=== PATIENT | male | born 1960 | race Caucasian/White ===

== ENCOUNTER 2021-07-25 15:34 | Inpatient (IN) | payer BC, OTHER ==
[~2021-07-25] VITALS: Ht 188 cm; Wt 102.4 kg
[2021-07-25 16:50] LABS: ABSOLUTE NEUTROPHILS 9.5 thou/uL (1.4-8.2); BASOPHILS 0.5 % (0.0-2.0); EOSINOPHILS 2.5 % (0.0-3.0); HEMATOCRIT 36.3 % (42.0-52.0); LYMPHOCYTES 9.2 % (24.0-44.0); MCH 27.6 pg (26.0-34.0); MCHC 33.1 g/dL (28.0-37.0); MCV 83.2 fL (80.0-100.0); PLATELET COUNT 238 thou/uL (150-400); POLYS 79.8 % (36.0-66.0); RBC 4.37 mil/uL (4.50-6.00); RDW 13.4 % (10.5-14.5); WBC 11.9 thou/uL (4.0-11.0)
[2021-07-25 16:54] LABS: CALCIUM 8.5 mg/dL (8.5-10.1); CREATININE 1.5 mg/dL (0.7-1.3); POTASSIUM 4.1 mmol/L (3.5-5.1)
[2021-07-25] MEDS ORDERED: AMOX TR-K CLV1 EAC4 PO ×2 (16:54)
[2021-07-25] MEDS ORDERED: HYDROCHLOROTHIA25 M1 PO ×2 (16:55)
[2021-07-25] MEDS ORDERED: GLUCOPHAGE XR750 MG PO ×2 (16:55)
[2021-07-25] MEDS ORDERED: HYDROCODON-ACE1 EAC8 PO ×2 (16:55)
[2021-07-25] MEDS ORDERED: MIRTAZAPINE15 M2 PO ×2 (16:56)
[2021-07-25] MEDS ORDERED: NEURONTIN 300M300 M2 PO ×2 (16:56)
[2021-07-25] MEDS ORDERED: FLEXERIL PO ×2 (16:57)
[2021-07-25] MEDS ORDERED: NOVOLIN N100 UNIT/1 SUBQ ×2 (16:57)
[2021-07-25] MEDS ORDERED: NOVOLIN R100 UNIT/1 SUBQ ×2 (16:57)
[2021-07-25] MEDS ORDERED: MELOXICAM15 MG PO ×2 (16:58)
[2021-07-26 05:02] LABS: HEMATOCRIT 33.5 % (42.0-52.0); HEMOGLOBIN 11.1 gm/dL (14.0-18.0); MCH 27.8 pg (26.0-34.0); MCHC 33.1 g/dL (28.0-37.0); MCV 84.2 fL (80.0-100.0); RBC 3.99 mil/uL (4.50-6.00); RDW 13.5 % (10.5-14.5); WBC 8.2 thou/uL (4.0-11.0)
[2021-07-26 05:15] LABS: CREATININE 1.6 mg/dL (0.7-1.3); POTASSIUM 3.7 mmol/L (3.5-5.1)
[2021-07-26 06:50] VITALS: BP 118/68
[2021-07-26 07:11] VITALS: BP 124/67
--- NOTE | 2021-07-26 15:09 | HC ---
[facility] [place] [address] CONSULTATION Name: BERNARDINO BUITRAGO Room #: 456-P ADM IN M.R.#: [id number] Admission: 07/25/21 Attend Phys: Amisha Bustamante MD Discharge: Date of : 64 Report #: [id number] THIS REPORT FOR: cc: Jesús Guy Andrea RNP Barry, Joseph W. MD ~ DATE OF SERVICE: 07/26/2021 INFECTIOUS DISEASE CONSULTATION ATTENDING PHYSICIAN: Dr. Bustamante. REASON FOR EVALUATION: Deep seated infection involving the left foot. HISTORY OF PRESENT ILLNESS: Chart reviewed. The patient examined. This is a 60-year-old gentleman with diabetes mellitus complicated by peripheral neuropathy, previous left transmetatarsal amputation due to repeated ulcerations as well as osteomyelitis, has a chronic wound on the dorsal aspect, has been fairly stable, had been undergoing wound care treatment. Over the course of last 3-4 days, had noticed a bullous lesion develop medially, subsequently denuded and there is a blackened eschar. There is odor and clearly there is expressible material with unhealthy tissue. He states he may have had low-grade temperature elevation. Denies any systemic illness in terms of anorexia. No pulmonary or gastrointestinal related complaints other than some mild nausea previously. Did undergo evaluation. Initial foot x-ray suggest larger cavity about 3 cm involving the plantar soft tissue laterally. Some tissue emphysema in the calcaneal region as well. No foreign body noted. Sed rate was 80. Lactic acid 1.8. Coronavirus testing was negative. Empirically, he was started on combination therapy with Zosyn and vancomycin. ALLERGIES: SULFA. CURRENT MEDICATIONS: Include enoxaparin, cyclobenzaprine, vancomycin, Zosyn, hydrocodone as needed, mirtazapine. PAST MEDICAL HISTORY: Diabetes mellitus type 2, complicated by peripheral neuropathy, previous left transmetatarsal amputation, chronic ulcerations, history of hypertension, insomnia, depression. SOCIAL HISTORY: Nonsmoker. No illicit drug use. Fairly regular ethanol. FAMILY HISTORY: Noncontributory. REVIEW OF SYSTEMS: Otherwise, unremarkable. PHYSICAL EXAMINATION: [facility] [address] [place] [address] CONSULTATION Name: BERNARDINO BUITRAGO Room #: 456-P [facility] IN [facility]#: [id number] Admission: 07/25/21 Attend Phys: Amisha Bustamante MD Discharge: Date of : 64 Report #: [id number] GENERAL: He is alert, cooperative, appears somewhat chronically ill. He is lucid, mild to moderate distress. VITAL SIGNS: Afebrile, pulse 94, respirations 15, blood pressure 124/67. SKIN: Warm, dry, no rashes. HEENT: Normocephalic. Extraocular muscles intact. NECK: Supple. LUNGS: Clear to auscultation bilaterally. HEART: Regular rate. I do not appreciate a murmur. ABDOMEN: Mildly distended, somewhat firm, nontender. EXTREMITIES: Left lower extremity distally has a plantar ulcer, some moderate degree of inflammation. More medially, there is a blackened eschar that is quite soft and compressible material. There is odor. GENITOURINARY AND RECTAL: Deferred. LABORATORY DATA: Electrolytes: Sodium 137, potassium 3.7, chloride 103, bicarbonate 26, anion gap of 8, BUN and creatinine 34 and 1.6. Estimated GFR 45. CBC: White count of 8.2, H and H 11.1 and 33.5, platelets of 189. Coronavirus testing was negative. Lactic acid 1.8. ASSESSMENT AND PLAN: Left foot likely deep infection with presumed polymicrobial etiology. Agree with broad-spectrum antimicrobial therapy including coverage for anaerobes. Will need some sort of surgical debridement I believe. At this point, did not suggest bony involvement. Await Podiatry evaluation. Monitor expectantly. We will initiate incentive spirometry. <ELECTRONICALLY SIGNED> By: Mulugeta Thomson MD 07/26/21 1509 [id number] Mulugeta Thomson MD /nt
--- NOTE | 2021-07-26 17:55 | NUR ---
PATIENT ARRIVED FROM EMERGENCY DEPARTMENT AT APPROX 0800. PATIENT IS A&OX4 AND CAN VOICE NEEDS. PATIENT WAS ABLE TO ANSWER ADMISSION ASSESSMENT QUESTIONS W NO ISSUES. PICTURES TAKEN ON L FOOT; 2 ULCERS, AND DRESSED. PATIENT HAD DMII AND HAS HAD STABLE BLOOD SUGARS THROUGHOUT SHIFT. PROVIDERS DR. MEI, ABHINAV, SUZIE & ALISTAIR ROUNDED ON PATIENT. NEW ORDERS ACKKNOWLEDGED & IMPLEMENTED. PATIENT IS A SBA TO BATHROOM WITH SOME GAIT ISSUES DUE TO L FOOT WOUND BUT DENIES PAIN. FLUIDS & ABX INFUSING W NO ISSUES ON L AC. PATIENT VOICES NO FURTHER NEEDS OR COMPLAINTS. MRI ORDERED; PATIENT TO COMPLETE FORM POST DINNER. WILL CONTINUE TO MONITOR PATIENT AND FOLLOW PLAN OF CARE
[2021-07-26 20:20] VITALS: BP 129/57
--- NOTE | 2021-07-27 04:20 | NUR ---
Pt. rested quietly at intervals during the night when checked on during frequent rounds. He offers no c/o pain. He did c/o some nausea, but refused anti-nausea meds when offered. Pt. refused dressing changes because he said it was done so often yesterday with everyoe looking at it.
[2021-07-27 07:52] VITALS: BP 115/59
--- NOTE | 2021-07-27 12:33 | HC ---
[facility] [place] [address] CONSULTATION Name: BERNARDINO BUITRAGO Room #: 456-P ADM IN M.R.#: [id number] Admission: 07/25/21 Attend Phys: Amisha Bustamante MD Discharge: Date of : 64 Report #: [id number] THIS REPORT FOR: cc: Jesús Guy Andrea RNP Jetmore, Allen B. MD ~ DATE OF SERVICE: 07/26/2021 WOUND CARE CONSULTATION NOTE REASON FOR CONSULTATION: Worsened diabetic ulcers of left foot. HISTORY OF PRESENT ILLNESS: The patient is a 60-year-old gentleman with a history of previous transmetatarsal amputation, left foot, for diabetic complications. He has diabetes mellitus type 2 with peripheral neuropathy. He had a previous history of osteomyelitis of left foot requiring transmetatarsal amputation. The patient has recently been managed for ulcers of the left foot, on the plantar foot and medial aspect of the foot. These have now become worse with more drainage, foul odor, black discoloration, redness, swelling, increased drainage. He had a fever about 3 days ago. He was placed on Augmentin without improvement. The patient was admitted to the Emergency Room. Plain x-ray showed no bony changes. The patient is currently on IV antibiotics, vancomycin and Zosyn. He has been seen in consultation by Dr. Jaquez for Podiatry with consideration of salvage of the foot versus possible need for below-knee amputation. Arterial ultrasound Doppler of the lower extremity has been ordered as well as an MRI of the foot. PAST MEDICAL HISTORY: 1. Diabetes mellitus type 2. 2. Diabetic peripheral neuropathy. ALLERGIES: SULFA. LABORATORY DATA: White blood count 11.9. X-RAYS: X-ray of the left foot shows air in the plantar soft tissues of the foot. No bony destruction. PHYSICAL EXAMINATION: GENERAL: Shows a healthy, well-appearing man, age 60. HEENT: Mucous membranes are moist. NECK: Supple. The patient does not appear septic. VITAL SIGNS: Stable. LUNGS: Respirations unlabored. ABDOMEN: Soft. EXTREMITIES: Shows left foot with previous transmetatarsal amputation with [address] [address] CONSULTATION Name: BERNARDINO BUITRAGO Room #: 456-P [facility] IN [facility].#: [id number] Admission: 07/25/21 Attend Phys: Amisha Bustamante MD Discharge: Date of : 64 Report #: [id number] healed stump. The patient has an ulcer on the medial plantar aspect of the foot measuring approximately 2.5 x 2 cm, 50% granulated with some exudate. He has a worsened ulcer on the medial aspect of the foot near the ankle, which is approximately 3 x 3 cm, has a foul odor and black gangrenous necrosis visible on the surface. The patient has some peroneal nerve functional loss. IMPRESSION: 1. Diabetes mellitus type 2 with ulcer of left foot with gangrenous changes. Cellulitis of the left foot. 2. Diabetic neuropathy. 3. History of osteomyelitis of the left foot. PLAN: IV antibiotics, vancomycin and Zosyn. Further evaluation by MRI of the foot to stage the extent of infection. Arterial ultrasound of both lower extremities to assess arterial supply for healing of any potential amputation such as below-knee amputation. Local dressing with quarter-strength Dakin's gauze [address] Jaquez will evaluate the MRI. Dr. Dailey was involved in the case. May be necessary to consult Orthopedic Surgery for consideration of below-knee amputation if Dr. Jaquez feels that foot salvage cannot be done. Wound care will follow. <ELECTRONICALLY SIGNED> By: Vikas Figueroa MD 07/27/21 1233 1430 [id number] Vikas Figueroa MD /nt
[2021-07-27 16:31] VITALS: BP 142/67
--- NOTE | 2021-07-27 19:57 | NUR ---
Assumed pt care this am, vs stable. Wound care and dressing change done. POC followed with no signs opr verbalizations of distress noted. For MRI tomorrow, form sent.l Endorsedtot he night nurse.
[2021-07-27 21:04] VITALS: BP 145/76
--- NOTE | 2021-07-28 03:34 | NUR ---
PT A & O X4, SLEPT THROUGH THE NIGHT TX COMPLETED WOUND SWABBED FOR CULTURE, PT TOLARETED TREATMENT WELL, PAIN MEDICATION DMINISTERED. ICE ON THE BEDSIDE TABLE, CALL LIGHT WITHIN REACH, X1 STANDBY ASSIST TO THE BATHROOM, NO ADVERSE REACTION NOTED FROM THE CURRENT TREATMENT. CONTINUES TO BE ON CARB DIET. EDUCTION PROVIDED ON SAFETY, AND CURRENT TREATMENT PLAN. MUSCLE STRENGTH 5/5 IN ALL EXTREMITIES, ACTIVITY TOLARATED, PERRLA, STRONG APICAL PULSE, CONCERNED ABOUT WOUND ON THE RIGHT FOOT REPORTS TOLARABLE PAIN. WILL CONTINUE TO MONITOR PT.
[2021-07-28 04:05] LABS: GLYCOHEMOGLOBIN (HGB A1C) 8.7 % (4.8-5.6)
[2021-07-28 05:15] VITALS: BP 121/60
[2021-07-28 08:49] VITALS: BP 129/72
--- NOTE | 2021-07-28 12:33 | H ---
[facility] [place] [address] HISTORY AND PHYSICAL Name: BERNARDINO BUITRAGO Room #: 456-P ADM IN M.R.#: [id number] Admission: 07/25/21 Attend Phys: Amisha Bustamante MD Discharge: Date of : 64 Report #: [id number] THIS REPORT FOR: cc: Jesús Guy Andrea RNP Rizzi, Raymond M. DPM ~ DATE OF SERVICE: 07/25/2021 INTRODUCTION: This is a 60-year-old white male with a diabetic foot ulcer, left wound, also status post a transmetatarsal amputation, left foot. HISTORY OF PRESENT ILLNESS: This is a 60-year-old white male diabetic with a history of chronic wounds to his left foot. He had a left transmetatarsal amputation over a year ago. It took about 8 months for it to heal mostly, but never quite healed. He has been fighting a wound on the plantar distal medial aspect of the foot for the last year with the wound never healing. He has tried multiple types of wound care with no success. Now, he has a new wound present over the last week on the medial left ankle that is necrotic with a significant odor. The patient is not complaining of any fever or chills. PAST MEDICAL HISTORY: Noted for diabetes, peripheral neuropathy and hypertension. MEDICATIONS: Mirtazapine, hydrochlorothiazide, metformin. He is on gabapentin, meloxicam, Flexeril, NPH. ALLERGIES: SULFA. PREVIOUS SURGERIES: Left foot transmetatarsal amputation. FAMILY HISTORY: Has been reviewed and unremarkable. SOCIAL HISTORY: No history of tobacco use, occasional alcohol use, no recreational drugs. 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 PHYSICAL EXAMINATION: GENERAL: Well-developed, well-nourished white male, in acute distress. HEENT: PERRLA. NECK: Supple. No lymphadenopathy. HEART: Regular rate and rhythm. LUNGS: No respiratory distress. [facility] [address] [place] [address] HISTORY AND PHYSICAL Name: BERNARDINO BUITRAGO Room #: 456-P [facility] IN [facility].#: [id number] Admission: 07/25/21 Attend Phys: Amisha Bustamante MD Discharge: Date of : 64 Report #: [id number] EXTREMITIES: Lower extremities exam shows he has a left transmetatarsal amputation, slightly edematous, slightly red with a varus-type forefoot loading lateral column, but the wound present on the plantar distal medial foot approximately 4 cm in diameter. This wound has a nice well demarcated area with no surrounding redness and minimal callus present and the wound itself has patches of fibrous tissue. There is a more serious wound on the medial ankle approximately 5.5 cm in diameter, necrotic with purulence and some slight fluctuance in the area right over where the posterior tib artery is. It is reddened in this area. IMAGING DATA: X-rays were taken and unremarkable. Apparently, MRI was take, but finally I think it was not ordered. I did not feel a dorsalis pedis or posterior tibial artery. LABORATORY DATA: His white blood cell count on admit is 11.9. ESR is 80, blood sugar is under 200. ASSESSMENT AND PLAN: Diabetic foot ulcer x 2, left foot, one with a necrotic patch and a clear infection, most likely tendon involved and possibly ostium. Plan is to get a vascular evaluation by Dr. Dailey and also get an MRI. I discussed with the patient the possibility of a BKA or possibility of just debridement, probably will take place until Wednesday or Wednesday because we are awaiting for further information from Dr. Dailey and the MRI. Please call if you have any questions or concerns. This will be a very difficult foot to heal and if it does heal, he also will need to take a job where he is mostly sitting for this to stay healed. <ELECTRONICALLY SIGNED> By: Raudel Jaquez DPM 07/28/21 1233 1155 [id number] Raudel Jaquez DPM /nt
--- NOTE | 2021-07-28 19:27 | NUR ---
Assumed pt care this am, vs stable sent for MRI this am. Wound care dressing done several times today. Diet and medications are tolerated well. POC followed with no signs or verbalizations of distress noted. Awating for IR MD input. Endorse to the night nurse .
[2021-07-28 19:59] VITALS: BP 143/81
--- NOTE | 2021-07-29 03:34 | NUR ---
ASSUMED CARE OF PT AT SHIFT CHANGE. PT IS AOX4 AND LETS NEEDS BE KNOWN. ASSESSMENT CHARTED. ABX TREATMENT CONTINUED. DRESSING CHANGED PER ORDER. PT REPORTED LOME LE PAIN; PRNS PAIN MEDS GIVEN. PT WAS ABLE TO GET COMFORTABLE AND SLEEP PART OF THE SHIFT. VSS AND NO S/S OF ACUTE DISTRESS. WILL CONTINUE TO MONITOR FOR CHANGES.
[2021-07-29 05:28] VITALS: BP 130/77
[2021-07-29 08:10] VITALS: BP 133/70
[2021-07-29 11:25] LABS: CALCIUM 8.3 mg/dL (8.5-10.1); POTASSIUM 4.4 mmol/L (3.5-5.1)
[2021-07-29 16:35] VITALS: BP 144/76
--- NOTE | 2021-07-29 19:18 | NUR ---
Assumed pt care this am, vs stable. Wound care and dressing change done by wound care team. Non weight bearing on affected foot. No pain d/t neuropathy. To be NPO tomorrow at [address] Jaquez for procedure late in the PM, pt aware. POC followed with no signs or verbalizations of distress noted. Endorsed to the night nurse.
[2021-07-29 20:46] VITALS: BP 148/74
--- NOTE | 2021-07-30 04:58 | NUR ---
RECEIVED CARE OF THIS PATIENT AT 1900. PATIENT ALERT AND ORIENTED. UP AD [place]. DRESSING ON L FOOT D/I. WILL BE NPO AT 0800 FOR I/D OF WOUNDS ON L FOOT. C/O MILD PAIN, MED GIVEN. SLEPT MOST OF NIGHT.
--- NOTE | 2021-07-30 09:34 | NUR ---
PT ADMITTED RELATED TO SEPSIS; L FOOT WOUND. CM REVIEWED CHART AND SPOKE WITH CARE TEAM. CM MET WITH PT AT BEDSIDE YESTERDAY. CM ROLE INTRODUCED. PT APPEARED TO BE A&OX4. CM ROLE INTRODUCED. PT INDICATED HE LIVES IN A HOUSE WITH HIS SISTER AND HER SPOUSE WITH 3 STEPS TO ENTER AND 15 STEPS TO HIS LIVING AREA. 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 PT INDICATED NO DME DIGITAL PUBLISHING SPECIALIST. 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 MCCORMACK'S OFFICE. PT ON IV VANC REBEKAD GRANT. PT TO HAVE DEBRIDEMENET OF ANBLE AND FOOT TODAY. CM FOLLOWING REGARDING DC PLANNING.
--- NOTE | 2021-07-30 16:50 | NUR ---
Assumedpt care this am vs stable. NPO after breakfast. Wound care not done, pt wanted wound care to do the change in turn wound care mentioned he will go to surgery. POC followed, pain is managed with medications.
[2021-07-30 19:44] VITALS: BP 171/85
[2021-07-30 21:41] VITALS: BP 163/87
[2021-07-31 00:09] VITALS: BP 137/74
--- NOTE | 2021-07-31 03:30 | NUR ---
ASSUMED PT CARE THIS EVENING THIS.PT IS ALERT AND ORIENTED X4. DRSG CHANGE COOMPLETED; PAIN MEDS GIVEN PRIOR TO CHANGE. VS WITHIN NORMAL RANGE AND MEDS GIEN PER EMAR ORDERS. PT INFORMED ABOUT NPO ORDERS STARTING AT 6AM; PT VERBALIZED UNDERSTANDING. PT DID NOT VERBALIZE ANY CONCERNS. NO VISIBLE SIGN OF DISTRESS NOTED. FALL PRECAUTIONS IN PLACE. WILL CONTINUE TO MONITOR.
[2021-07-31 05:03] VITALS: BP 147/70
--- NOTE | 2021-07-31 15:19 | NUR ---
TODAY THIS PT HAS BEEN NSR ON THE MONITOR WITH NO STATED PAIN AND STABLE VS. HE HAS BEEN NPO SINCE MIDNIGHT AND HE WENT DOWN FOR SURGERY ON HIS FOOT. HE WAS TOLERATING HIS FLUIDS WELL AND HAS BEEN USING THE URINAL AT BEDSIDE WITH NO ISSUES.
--- NOTE | 2021-07-31 15:23 | NUR ---
PT WENT FOR DEBRIDEMENT OF FOOT AND ANKLE THIS AFTERNOON. ID INDICATING THAT PT MAY DC HOME ON CEFTRIAXONE Q24 PENDING CULTURES. CM MET WITH PT AND DISCUSSED HOME INFUSION VS. OP INFUSION. HE WAS RECEPTIVE TO CM SENDING INFO TO [employer] TO [employer] OUT COVERAGE FOR HOME INFUSION. THEY INDICATED ONCE OP $5000 IS MET COVERED AT 100% OTHERWISE $37.72 PER DAY UNTIL MET. CM FOLLOWING REGARDING DC PLANNING.
[2021-07-31 16:03] VITALS: BP 138/85
[2021-07-31 21:11] VITALS: BP 128/73
[2021-08-01 00:10] VITALS: BP 132/65
[2021-08-01 04:08] VITALS: BP 117/62
[2021-08-01 05:19] LABS: HEMATOCRIT 32.5 % (42.0-52.0); HEMOGLOBIN 10.7 gm/dL (14.0-18.0)
[2021-08-01 06:15] LABS: ABSOLUTE NEUTROPHILS 10.8 thou/uL (1.4-8.2); BASOPHILS 0.1 % (0.0-2.0); HEMATOCRIT 32.3 % (42.0-52.0); HEMOGLOBIN 10.9 gm/dL (14.0-18.0); LYMPHOCYTES 6.8 % (24.0-44.0); MCH 27.9 pg (26.0-34.0); MCHC 33.6 g/dL (28.0-37.0); MONOCYTES 1.8 % (1.0-8.0); PLATELET COUNT 234 thou/uL (150-400); POLYS 91.3 % (36.0-66.0); RBC 3.89 mil/uL (4.50-6.00); RDW 13.4 % (10.5-14.5); WBC 11.8 thou/uL (4.0-11.0)
--- NOTE | 2021-08-01 06:27 | NUR ---
top emily wrap removed with minimum bleeding noted per order. inside emily wrap is c/d/i. patient uses a urinal at bed side. patient is up at stephanie. patient in bed asleep at this time breathing regular and unlaboured.
[2021-08-01 06:30] LABS: CALCIUM 8.2 mg/dL (8.5-10.1); POTASSIUM 4.9 mmol/L (3.5-5.1); TOTAL BILIRUBIN 0.3 mg/dL (0.2-1.0); TOTAL PROTEIN 7.1 g/dL (6.4-8.2)
[2021-08-01 08:50] VITALS: BP 145/85
--- NOTE | 2021-08-01 10:26 | NUR ---
A RIGHT #4F SINGLE LUMEN POWER PICC WAS PLACED AFTER A BEDSIDE TIMEOUT WAS COMPLETED PER HOSPITAL POLICY. THE RIGHT BRACHIAL WAS WIDLEY PATENT. AFTER RISKS AND BENIFITS WERE DISCUSSED WELL PICC LINE PROCEDURE THE PATIENT AGREED TO PLACEMENT. CONSENT NOTED. THE 45CM WAS ADVANCED TO 2CM EXTERNAL AND CONFIRMED WITH A PEAKED P WAVE AT 2CM EXTERNAL. THE LINE WAS SECURED AND RELEASED FOR USE
--- NOTE | 2021-08-01 12:21 | NUR ---
CM FOLLOWED UP WITH PT THIS AM AND HE INDICATED DESIRE FOR HOME INFUSION UPON DC AND HH. CM FAXED UPDATED CLINICAL TO [facility] AND [facility]. ANTICIPATED DC TOMORROW. PT WILL NEED BEDSIDE TEACH PRIOR TO DC. FINAL ORD[facility] HH: [facility]:
--- NOTE | 2021-08-01 15:03 | NUR ---
TODAY THIS PT HAS HAD SOME STATED PAIN IN WHICH HE HAS RECIEVED MEDICATIONS FOR. HE HAS BEEN EATING MAJORITY OF HIS MEALS AND HAS BEEN GETTING UP TO THE BATHROOM WITH NO ISSUES. HE HAS OTHERWISE BEEN AWAITING FOR THE NEXT PLAN.
--- NOTE | 2021-08-01 15:09 | NUR ---
THIS PT HAS HAD HIS FOOT DRESSINGS CHANGED BY THE PHYSICIAN AND IS NOT TO BE CHANGED AGAIN UNLESS THE DRAINAGE HAS WENT THROUGH THE DRESSINGS, BUT OTHERWISE IT IS TO BE LEFT ALONE UNTIL THE PATIENTS VISIT IN THE OFFICE.
[2021-08-01 15:53] VITALS: BP 134/78
[2021-08-01 19:52] VITALS: BP 158/80
[2021-08-02 00:25] VITALS: BP 126/63
[2021-08-02 04:30] VITALS: BP 110/63
--- NOTE | 2021-08-02 04:54 | NUR ---
patient aox4 makes needs known. pain controlled this shift. patient used the bathroom at around 2100 and walked on the left foot. minimum bleeding noted and reinforcement applied. at around 0300 patient pad was saturated with blood. called rnp new order to order h&h. called surgeon new order to pack with kelex, ag cell, 2 emily wrap. no bleeding noted at this time. patient in bed asleep at this time breathing regular and unlaboured.
[2021-08-02 06:30] LABS: HEMATOCRIT 26.1 % (42.0-52.0)
[2021-08-02 06:39] LABS: HEMOGLOBIN 8.5 gm/dL (14.0-18.0)
[2021-08-02 08:00] VITALS: BP 130/77
--- NOTE | 2021-08-02 11:50 | O ---
[facility] [place] [address] OPERATIVE REPORT Name: BERNARDINO BUITRAGO Room #: 456-P ADM IN M.R.#: [id number] Admission: 07/25/21 Attend Phys: Amisha Bustamante MD Discharge: Date of : 64 Report #: [id number] THIS REPORT FOR: cc: Jesús Guy Andrea RNP Rizzi, Raymond M. DPM ~ DATE OF SERVICE: 08/01/2021 PREOPERATIVE DIAGNOSIS: Left diabetic foot ulcer and ankle wound. POSTOPERATIVE DIAGNOSIS: Left diabetic foot ulcer and ankle wound. PROCEDURE: Left foot and ankle debridement 12 cm x 5-6 cm with tendon excisional debridement, very aggressive. ANESTHESIA: General with a local block consisting of 15 mL of 0.5% Marcaine. TOURNIQUET: None. DESCRIPTION OF PROCEDURE: The patient was transferred to operating room and placed on the operative table in supine position. Anesthesia was administered and the left lower extremity was prepped and draped in the usual sterile manner. Attention was directed to the left foot where a distal plantar medial wound was noted to approximately the size of a silver dollar with a tunnel going back to a more proximal wound on the left medial ankle. When evaluating this tunnel intraoperatively, it was noted that there was swelling along the plantar fascia and some tendon sheath in this area such as the posterior tib. Decided to open this up, so that I can visualize it better, so I used a 15 blade and Arroyo scissors to open it up completely exposing the necrotic parts of the plantar fascia going more proximal and tunneling back to the origin of the plantar fascia and also more to the lateral side as well more proximal. I removed all the questionable friable tissue and necrotic tissue with a rongeur and sent deep tissue for aerobic and fungal. The entire plantar fascia was visualized, being careful not to devascularize the area. I also carried out more medially along the medial ankle wound and carried it proximally approximately another 2-3 cm in incision, cleaning out any questionable and necrotic tissue, which was found in this area. This took about 30 minutes or more, it was complicated by the significant amount [facility] [address] [place] [address] OPERATIVE REPORT Name: BERNARDINO BUITRAGO Room #: 456-P [facility] ..#: [id number] Admission: 07/25/21 Attend Phys: Amisha Bustamante MD Discharge: Date of : 64 Report #: [id number] of infection present in this area, tunneling and lobulated. It looked excellent when I was done, but there is still concern of, still remaining little pieces of deep fascia that may be harboring infection. I washed out thoroughly and dressed with fluffs, Kerlix and Valeriy bandage. The patient tolerated the procedure well and left the operating room with stable vital signs and vascular intact. It should be noted that there was good bleeding going under this wound. <ELECTRONICALLY SIGNED> By: Raudel Jaquez DPM 08/02/21 1150 1127 1211 Raudel Jaquez, JERRY /nt
--- NOTE | 2021-08-02 15:53 | NUR ---
TODAY THIS PT HAS BEEN NSR ON THE MONITOR WITH SOME STATED PAIN IN WHICH HE HASN'T WANTED INTERVENTION FOR SO FAR. DR. LA CAME UP TO VISIT THE PATIENT ABOUT HIS BLEEDING FOOT AND HE ADDRESSED THE WOUND AND TOLD ME NOT TO CHANGE THE DRESSINGS AND HE WILL BE BACK TOMORROW TO ASSESS IT ONCE AGAIN.
[2021-08-02 16:50] VITALS: BP 155/84
[2021-08-02 20:47] VITALS: BP 142/81
[2021-08-03 00:34] VITALS: BP 138/81
[2021-08-03 04:28] VITALS: BP 126/77
--- NOTE | 2021-08-03 05:41 | NUR ---
Assumed pt care at 1900. A/OX4,VSS. Denies pain on assessment. Looking forward to dc today hopefully. Dsg to Left foot C/D/I. Reminded to not bear weight on extremity and compliant. Voiding per urinal at [facility]. NSR on telemetry. Will continue to monitor pt.
[2021-08-03 07:54] VITALS: BP 130/89
[2021-08-03 11:47] LABS: HEMATOCRIT 25.8 % (42.0-52.0); HEMOGLOBIN 8.6 gm/dL (14.0-18.0); MCHC 33.4 g/dL (28.0-37.0); MCV 83.9 fL (80.0-100.0); RBC 3.08 mil/uL (4.50-6.00); RDW 13.7 % (10.5-14.5); WBC 7.5 thou/uL (4.0-11.0)
[2021-08-03 12:00] VITALS: BP 150/90
[2021-08-03] MEDS ORDERED: HUMULIN N100 UNIT/1 SUBQ ×2 (15:14)
[2021-08-03] MEDS ORDERED: CEFTRIAXONE2 G1 IVPB ×2 (15:15)
[2021-08-03] MEDS ORDERED: FLAGYL500 M1 PO ×2 (15:17)
--- NOTE | 2021-08-03 15:27 | NUR ---
TODAY THIS PT HAS BEEN D/C TO HOME WITH THE CARE OF HIS . NO BLEEDING FROM HIS FOOT SITE THIS SHIFT AND HE HAS BEEN USING HIS ONE LEG WALKER WITH NO DIFFICULTY. HE IS OTHERWISE GOING HOME AND EAGER WELL TO BE D/C.
[2021-08-03 15:32] VITALS: BP 150/90
== END 2021-08-03 17:22 | disposition home health service (06) | DRG 854 ==
LOC: ER 15:34 → 4W 19:50 → EROBS 19:50 → 4W 07-26 07:26
PROVIDERS: Internal Medicine; Nurse Practitioner Family; Podiatrist Foot & Ankle Surgery; Specialist; Student in an Organized Health Care Education/Training Program; ADMIT Hospitalist; ATTEND Hospitalist
PROC: 02HV33Z Insertion of Infusion Device into Superior Vena Cava, Percutaneous Approach (ICD-10-PCS; principal; 2021-08-01)
PROC: 0JBR0ZZ Excision of Left Foot Subcutaneous Tissue and Fascia, Open Approach (ICD-10-PCS; 2021-08-01)
DX: A41.9 Sepsis, unspecified organism (principal); E11.52 Type 2 diabetes mellitus with diabetic peripheral angiopathy with gangrene; L03.116 Cellulitis of left lower limb; D62 Acute posthemorrhagic anemia; E11.621 Type 2 diabetes mellitus with foot ulcer; I12.9 Hypertensive chronic kidney disease with stage 1 through stage 4 chronic kidney disease, or unspecified chronic kidney disease; N18.30 Chronic kidney disease, stage 3 unspecified; E11.22 Type 2 diabetes mellitus with diabetic chronic kidney disease; F32.9 Major depressive disorder, single episode, unspecified; R53.81 Other malaise; G47.00 Insomnia, unspecified; J45.909 Unspecified asthma, uncomplicated; G47.33 Obstructive sleep apnea (adult) (pediatric); I25.10 Atherosclerotic heart disease of native coronary artery without angina pectoris; M48.00 Spinal stenosis, site unspecified; E11.42 Type 2 diabetes mellitus with diabetic polyneuropathy; L97.529 Non-pressure chronic ulcer of other part of left foot with unspecified severity; Z20.822 Contact with and (suspected) exposure to COVID-19; Z89.422 Acquired absence of other left toe(s); Z79.899 Other long term (current) drug therapy; Z88.2 Allergy status to sulfonamides
CPT/HCPCS: 10045; 27000; 50010; 50101; 50386; 57091; 62110; 62900; 70005

== ENCOUNTER → 2021-08-04 | Outpatient (CLI) | payer BC, OTHER ==
[~2021-08-04] MED LIST: AMOX TR-K CLV1 EAC4 PO; CEFTRIAXONE2 G1 IVPB; FLAGYL500 M1 PO; FLEXERIL PO; GLUCOPHAGE XR750 MG PO; HUMULIN N100 UNIT/1 SUBQ; HYDROCHLOROTHIA25 M1 PO; HYDROCODON-ACE1 EAC8 PO; MELOXICAM15 MG PO; MIRTAZAPINE15 M2 PO; NEURONTIN 300M300 M2 PO; NOVOLIN N100 UNIT/1 SUBQ; NOVOLIN R100 UNIT/1 SUBQ
== END ==
LOC: HYPER 08:04
PROVIDERS: ATTEND Emergency Medicine
DX: E11.621 Type 2 diabetes mellitus with foot ulcer (principal); L97.423 Non-pressure chronic ulcer of left heel and midfoot with necrosis of muscle; E11.69 Type 2 diabetes mellitus with other specified complication; M86.472 Chronic osteomyelitis with draining sinus, left ankle and foot; E11.40 Type 2 diabetes mellitus with diabetic neuropathy, unspecified; Z89.412 Acquired absence of left great toe; Z89.422 Acquired absence of other left toe(s); Z79.4 Long term (current) use of insulin

== ENCOUNTER → 2021-08-05 | Outpatient (CLI) | payer BC, OTHER | LOC: HYPER 07:42 | PROVIDERS: ATTEND Specialist | DX: E11.621 Type 2 diabetes mellitus with foot ulcer (principal); L97.423 Non-pressure chronic ulcer of left heel and midfoot with necrosis of muscle; E11.69 Type 2 diabetes mellitus with other specified complication; M86.472 Chronic osteomyelitis with draining sinus, left ankle and foot; E11.40 Type 2 diabetes mellitus with diabetic neuropathy, unspecified; Z79.4 Long term (current) use of insulin; Z89.412 Acquired absence of left great toe; Z89.422 Acquired absence of other left toe(s) ==

== ENCOUNTER → 2021-08-06 | Outpatient (CLI) | payer BC, OTHER | LOC: HYPER 07:34 | PROVIDERS: ATTEND Emergency Medicine | DX: E11.621 Type 2 diabetes mellitus with foot ulcer (principal); L97.423 Non-pressure chronic ulcer of left heel and midfoot with necrosis of muscle; E11.69 Type 2 diabetes mellitus with other specified complication; M86.472 Chronic osteomyelitis with draining sinus, left ankle and foot; E11.40 Type 2 diabetes mellitus with diabetic neuropathy, unspecified; Z79.4 Long term (current) use of insulin; Z89.412 Acquired absence of left great toe; Z89.422 Acquired absence of other left toe(s) ==

== ENCOUNTER → 2021-08-07 | Outpatient (CLI) | payer BC, OTHER | LOC: HYPER 07:45 | PROVIDERS: ATTEND Emergency Medicine | DX: E11.621 Type 2 diabetes mellitus with foot ulcer (principal); L97.423 Non-pressure chronic ulcer of left heel and midfoot with necrosis of muscle; E11.69 Type 2 diabetes mellitus with other specified complication; M86.472 Chronic osteomyelitis with draining sinus, left ankle and foot; E11.40 Type 2 diabetes mellitus with diabetic neuropathy, unspecified; Z79.4 Long term (current) use of insulin; Z89.412 Acquired absence of left great toe; Z89.422 Acquired absence of other left toe(s) ==

== ENCOUNTER → 2021-08-08 | Outpatient (CLI) | payer BC, OTHER | LOC: HYPER 07:40 | PROVIDERS: ATTEND Emergency Medicine Emergency Medical Services | DX: E11.621 Type 2 diabetes mellitus with foot ulcer (principal); L97.523 Non-pressure chronic ulcer of other part of left foot with necrosis of muscle; E11.69 Type 2 diabetes mellitus with other specified complication; M86.472 Chronic osteomyelitis with draining sinus, left ankle and foot; E11.40 Type 2 diabetes mellitus with diabetic neuropathy, unspecified; Z89.412 Acquired absence of left great toe; Z79.4 Long term (current) use of insulin; Z79.899 Other long term (current) drug therapy ==

== ENCOUNTER → 2021-08-11 | Outpatient (CLI) | payer BC, OTHER | LOC: HYPER 07:34 | PROVIDERS: ATTEND Emergency Medicine Emergency Medical Services | DX: E11.621 Type 2 diabetes mellitus with foot ulcer (principal); L97.523 Non-pressure chronic ulcer of other part of left foot with necrosis of muscle; E11.69 Type 2 diabetes mellitus with other specified complication; M86.472 Chronic osteomyelitis with draining sinus, left ankle and foot; E11.40 Type 2 diabetes mellitus with diabetic neuropathy, unspecified; Z79.4 Long term (current) use of insulin; Z79.899 Other long term (current) drug therapy; Z89.412 Acquired absence of left great toe ==

== ENCOUNTER 2021-08-12 18:29 | Emergency (ER) | payer BC, OTHER ==
[~2021-08-12] VITALS: Ht 188 cm; Wt 95.3 kg
[2021-08-12 20:28] VITALS: BP 118/80
== END 2021-08-12 20:33 | disposition home or self-care (01) ==
LOC: ER 18:29
DX: T82.898A Other specified complication of vascular prosthetic devices, implants and grafts, initial encounter (principal); I10 Essential (primary) hypertension; E11.9 Type 2 diabetes mellitus without complications; Z79.4 Long term (current) use of insulin; Z79.899 Other long term (current) drug therapy; Z88.2 Allergy status to sulfonamides

== ENCOUNTER → 2021-08-13 | Outpatient (CLI) | payer BC, OTHER | LOC: HYPER 07:42 | PROVIDERS: ATTEND Emergency Medicine | DX: E11.621 Type 2 diabetes mellitus with foot ulcer (principal); L97.523 Non-pressure chronic ulcer of other part of left foot with necrosis of muscle; E11.69 Type 2 diabetes mellitus with other specified complication; M86.472 Chronic osteomyelitis with draining sinus, left ankle and foot; E11.40 Type 2 diabetes mellitus with diabetic neuropathy, unspecified; Z89.412 Acquired absence of left great toe; Z79.4 Long term (current) use of insulin ==

== ENCOUNTER → 2021-08-14 | Outpatient (CLI) | payer BC, OTHER | LOC: HYPER 07:30 | PROVIDERS: ATTEND Emergency Medicine | DX: E11.621 Type 2 diabetes mellitus with foot ulcer (principal); L97.523 Non-pressure chronic ulcer of other part of left foot with necrosis of muscle; E11.69 Type 2 diabetes mellitus with other specified complication; M86.472 Chronic osteomyelitis with draining sinus, left ankle and foot; E11.40 Type 2 diabetes mellitus with diabetic neuropathy, unspecified; Z89.412 Acquired absence of left great toe; Z79.4 Long term (current) use of insulin ==

== ENCOUNTER → 2021-08-15 | Outpatient (CLI) | payer BC, OTHER | LOC: HYPER 08:00 | PROVIDERS: ATTEND Emergency Medicine Emergency Medical Services | DX: E11.621 Type 2 diabetes mellitus with foot ulcer (principal); L97.523 Non-pressure chronic ulcer of other part of left foot with necrosis of muscle; E11.69 Type 2 diabetes mellitus with other specified complication; M86.472 Chronic osteomyelitis with draining sinus, left ankle and foot; E11.40 Type 2 diabetes mellitus with diabetic neuropathy, unspecified; Z89.412 Acquired absence of left great toe; Z79.4 Long term (current) use of insulin ==

== ENCOUNTER → 2021-08-18 | Outpatient (CLI) | payer BC, OTHER | LOC: HYPER 08:01 | PROVIDERS: ATTEND Emergency Medicine | DX: E11.621 Type 2 diabetes mellitus with foot ulcer (principal); L97.523 Non-pressure chronic ulcer of other part of left foot with necrosis of muscle; L97.423 Non-pressure chronic ulcer of left heel and midfoot with necrosis of muscle; E11.69 Type 2 diabetes mellitus with other specified complication; M86.472 Chronic osteomyelitis with draining sinus, left ankle and foot; E11.40 Type 2 diabetes mellitus with diabetic neuropathy, unspecified; Z89.412 Acquired absence of left great toe; Z79.4 Long term (current) use of insulin ==

== ENCOUNTER → 2021-08-19 | Outpatient (CLI) | payer BC, OTHER | LOC: HYPER 07:30 | PROVIDERS: ATTEND Specialist | DX: E11.621 Type 2 diabetes mellitus with foot ulcer (principal); L97.523 Non-pressure chronic ulcer of other part of left foot with necrosis of muscle; E11.69 Type 2 diabetes mellitus with other specified complication; M86.472 Chronic osteomyelitis with draining sinus, left ankle and foot; E11.40 Type 2 diabetes mellitus with diabetic neuropathy, unspecified; Z89.412 Acquired absence of left great toe; Z79.4 Long term (current) use of insulin ==

== ENCOUNTER → 2021-08-20 | Outpatient (CLI) | payer BC, OTHER | LOC: HYPER 11:41 | PROVIDERS: ATTEND Emergency Medicine | DX: E11.621 Type 2 diabetes mellitus with foot ulcer (principal); L97.523 Non-pressure chronic ulcer of other part of left foot with necrosis of muscle; E11.69 Type 2 diabetes mellitus with other specified complication; M86.472 Chronic osteomyelitis with draining sinus, left ankle and foot; E11.40 Type 2 diabetes mellitus with diabetic neuropathy, unspecified; Z89.412 Acquired absence of left great toe; Z79.4 Long term (current) use of insulin ==

== ENCOUNTER → 2021-08-21 | Outpatient (CLI) | payer BC, OTHER | LOC: HYPER 08:16 | PROVIDERS: ATTEND Emergency Medicine | DX: E11.621 Type 2 diabetes mellitus with foot ulcer (principal); L97.523 Non-pressure chronic ulcer of other part of left foot with necrosis of muscle; E11.69 Type 2 diabetes mellitus with other specified complication; M86.472 Chronic osteomyelitis with draining sinus, left ankle and foot; E11.40 Type 2 diabetes mellitus with diabetic neuropathy, unspecified; Z89.412 Acquired absence of left great toe; Z79.4 Long term (current) use of insulin ==

== ENCOUNTER → 2021-08-22 | Outpatient (CLI) | payer BC, OTHER | LOC: HYPER 07:58 | PROVIDERS: ATTEND Emergency Medicine | DX: E11.621 Type 2 diabetes mellitus with foot ulcer (principal); L97.523 Non-pressure chronic ulcer of other part of left foot with necrosis of muscle; E11.69 Type 2 diabetes mellitus with other specified complication; M86.472 Chronic osteomyelitis with draining sinus, left ankle and foot; E11.40 Type 2 diabetes mellitus with diabetic neuropathy, unspecified; Z79.4 Long term (current) use of insulin; Z79.899 Other long term (current) drug therapy; Z89.412 Acquired absence of left great toe ==

== ENCOUNTER → 2021-08-25 | Outpatient (CLI) | payer BC, OTHER | LOC: HYPER 07:06 | PROVIDERS: ATTEND Emergency Medicine Emergency Medical Services | DX: E11.621 Type 2 diabetes mellitus with foot ulcer (principal); L97.523 Non-pressure chronic ulcer of other part of left foot with necrosis of muscle; E11.69 Type 2 diabetes mellitus with other specified complication; M86.472 Chronic osteomyelitis with draining sinus, left ankle and foot; E11.42 Type 2 diabetes mellitus with diabetic polyneuropathy; Z79.4 Long term (current) use of insulin; Z79.899 Other long term (current) drug therapy; Z89.412 Acquired absence of left great toe ==

== ENCOUNTER → 2021-08-28 | Outpatient (CLI) | payer BC, OTHER | LOC: HYPER 07:19 | PROVIDERS: ATTEND Emergency Medicine | DX: E11.621 Type 2 diabetes mellitus with foot ulcer (principal); L97.523 Non-pressure chronic ulcer of other part of left foot with necrosis of muscle; E11.69 Type 2 diabetes mellitus with other specified complication; M86.472 Chronic osteomyelitis with draining sinus, left ankle and foot; E11.40 Type 2 diabetes mellitus with diabetic neuropathy, unspecified; Z79.4 Long term (current) use of insulin; Z89.412 Acquired absence of left great toe ==

== ENCOUNTER → 2021-08-29 | Outpatient (CLI) | payer BC, OTHER | LOC: HYPER 07:38 | PROVIDERS: ATTEND Emergency Medicine Emergency Medical Services | DX: E11.621 Type 2 diabetes mellitus with foot ulcer (principal); L97.523 Non-pressure chronic ulcer of other part of left foot with necrosis of muscle; E11.69 Type 2 diabetes mellitus with other specified complication; M86.472 Chronic osteomyelitis with draining sinus, left ankle and foot; E11.40 Type 2 diabetes mellitus with diabetic neuropathy, unspecified; Z89.412 Acquired absence of left great toe; Z79.4 Long term (current) use of insulin; Z79.899 Other long term (current) drug therapy ==

== ENCOUNTER → 2021-09-02 | Outpatient (CLI) | payer BC, OTHER | LOC: HYPER 07:28 | PROVIDERS: ATTEND Specialist | DX: E11.621 Type 2 diabetes mellitus with foot ulcer (principal); L97.523 Non-pressure chronic ulcer of other part of left foot with necrosis of muscle; E11.69 Type 2 diabetes mellitus with other specified complication; M86.472 Chronic osteomyelitis with draining sinus, left ankle and foot; E11.40 Type 2 diabetes mellitus with diabetic neuropathy, unspecified; Z89.412 Acquired absence of left great toe; Z79.4 Long term (current) use of insulin ==

== ENCOUNTER → 2021-09-03 | Outpatient (CLI) | payer BC, OTHER | LOC: HYPER 08:00 | PROVIDERS: ATTEND Emergency Medicine | DX: E11.621 Type 2 diabetes mellitus with foot ulcer (principal); L97.523 Non-pressure chronic ulcer of other part of left foot with necrosis of muscle; E11.69 Type 2 diabetes mellitus with other specified complication; M86.472 Chronic osteomyelitis with draining sinus, left ankle and foot; E11.40 Type 2 diabetes mellitus with diabetic neuropathy, unspecified; Z89.412 Acquired absence of left great toe; Z79.4 Long term (current) use of insulin ==

== ENCOUNTER → 2021-09-04 | Outpatient (CLI) | payer BC, OTHER | LOC: HYPER 07:43 | PROVIDERS: ATTEND Emergency Medicine | DX: E11.621 Type 2 diabetes mellitus with foot ulcer (principal); L97.523 Non-pressure chronic ulcer of other part of left foot with necrosis of muscle; E11.69 Type 2 diabetes mellitus with other specified complication; M86.472 Chronic osteomyelitis with draining sinus, left ankle and foot; E11.40 Type 2 diabetes mellitus with diabetic neuropathy, unspecified; Z89.412 Acquired absence of left great toe; Z79.4 Long term (current) use of insulin ==

== ENCOUNTER → 2021-09-10 | Outpatient (CLI) | payer BC, OTHER | LOC: SJCVCIMAG 11:05 | PROVIDERS: ATTEND Emergency Medicine | DX: M79.606 Pain in leg, unspecified (principal); M79.89 Other specified soft tissue disorders ==

== ENCOUNTER → 2021-09-12 | Outpatient (CLI) | payer BC, OTHER | LOC: HYPER 07:54 | PROVIDERS: ATTEND Emergency Medicine Emergency Medical Services | DX: E11.621 Type 2 diabetes mellitus with foot ulcer (principal); L97.523 Non-pressure chronic ulcer of other part of left foot with necrosis of muscle; E11.69 Type 2 diabetes mellitus with other specified complication; M86.472 Chronic osteomyelitis with draining sinus, left ankle and foot; E11.40 Type 2 diabetes mellitus with diabetic neuropathy, unspecified; Z79.4 Long term (current) use of insulin; Z79.899 Other long term (current) drug therapy; Z89.412 Acquired absence of left great toe ==

== ENCOUNTER → 2021-09-15 | Outpatient (CLI) | payer BC, OTHER | LOC: HYPER 08:58 | PROVIDERS: ATTEND Emergency Medicine Emergency Medical Services | DX: E11.621 Type 2 diabetes mellitus with foot ulcer (principal); L97.523 Non-pressure chronic ulcer of other part of left foot with necrosis of muscle; E11.69 Type 2 diabetes mellitus with other specified complication; M86.472 Chronic osteomyelitis with draining sinus, left ankle and foot; E11.40 Type 2 diabetes mellitus with diabetic neuropathy, unspecified; Z79.4 Long term (current) use of insulin; Z89.412 Acquired absence of left great toe ==

== ENCOUNTER → 2021-09-17 | Outpatient (CLI) | payer BC, OTHER | LOC: HYPER 08:38 | PROVIDERS: ATTEND Emergency Medicine | DX: E11.621 Type 2 diabetes mellitus with foot ulcer (principal); L97.523 Non-pressure chronic ulcer of other part of left foot with necrosis of muscle; L97.423 Non-pressure chronic ulcer of left heel and midfoot with necrosis of muscle; S81.802D Unspecified open wound, left lower leg, subsequent encounter; E11.69 Type 2 diabetes mellitus with other specified complication; M86.472 Chronic osteomyelitis with draining sinus, left ankle and foot; E11.40 Type 2 diabetes mellitus with diabetic neuropathy, unspecified; Z79.4 Long term (current) use of insulin; Z89.412 Acquired absence of left great toe; X58.XXXD Exposure to other specified factors, subsequent encounter ==

== ENCOUNTER → 2021-09-29 | Outpatient (CLI) | payer BC, OTHER | LOC: HYPER 08:32 | PROVIDERS: ATTEND Emergency Medicine Emergency Medical Services | DX: E11.621 Type 2 diabetes mellitus with foot ulcer (principal); L97.523 Non-pressure chronic ulcer of other part of left foot with necrosis of muscle; L97.423 Non-pressure chronic ulcer of left heel and midfoot with necrosis of muscle; L84 Corns and callosities; S81.802D Unspecified open wound, left lower leg, subsequent encounter; E11.69 Type 2 diabetes mellitus with other specified complication; M86.472 Chronic osteomyelitis with draining sinus, left ankle and foot; E11.40 Type 2 diabetes mellitus with diabetic neuropathy, unspecified; Z79.4 Long term (current) use of insulin; Z89.412 Acquired absence of left great toe; X58.XXXD Exposure to other specified factors, subsequent encounter ==

== ENCOUNTER → 2021-10-13 | Outpatient (CLI) | payer BC, OTHER | LOC: HYPER 08:24 | PROVIDERS: ATTEND Emergency Medicine Emergency Medical Services | DX: E11.621 Type 2 diabetes mellitus with foot ulcer (principal); L97.523 Non-pressure chronic ulcer of other part of left foot with necrosis of muscle; E11.69 Type 2 diabetes mellitus with other specified complication; M86.472 Chronic osteomyelitis with draining sinus, left ankle and foot; L03.116 Cellulitis of left lower limb; E11.40 Type 2 diabetes mellitus with diabetic neuropathy, unspecified; L84 Corns and callosities; Z79.4 Long term (current) use of insulin; Z79.899 Other long term (current) drug therapy; Z89.412 Acquired absence of left great toe ==

== ENCOUNTER → 2021-10-20 | Outpatient (CLI) | payer BC, OTHER | LOC: HYPER 08:19 | PROVIDERS: ATTEND Emergency Medicine Emergency Medical Services | DX: E11.621 Type 2 diabetes mellitus with foot ulcer (principal); L97.423 Non-pressure chronic ulcer of left heel and midfoot with necrosis of muscle; E11.622 Type 2 diabetes mellitus with other skin ulcer; L89.526 Pressure-induced deep tissue damage of left ankle; L97.321 Non-pressure chronic ulcer of left ankle limited to breakdown of skin; L02.416 Cutaneous abscess of left lower limb; E11.69 Type 2 diabetes mellitus with other specified complication; M86.472 Chronic osteomyelitis with draining sinus, left ankle and foot; L03.116 Cellulitis of left lower limb; E11.40 Type 2 diabetes mellitus with diabetic neuropathy, unspecified; L84 Corns and callosities; Z79.4 Long term (current) use of insulin; Z89.412 Acquired absence of left great toe ==

== ENCOUNTER → 2021-10-27 | Outpatient (CLI) | payer BC, OTHER | LOC: HYPER 11:14 | PROVIDERS: ATTEND Emergency Medicine Emergency Medical Services | DX: E11.621 Type 2 diabetes mellitus with foot ulcer (principal); L97.523 Non-pressure chronic ulcer of other part of left foot with necrosis of muscle; E11.622 Type 2 diabetes mellitus with other skin ulcer; L89.526 Pressure-induced deep tissue damage of left ankle; L97.321 Non-pressure chronic ulcer of left ankle limited to breakdown of skin; L02.416 Cutaneous abscess of left lower limb; E11.69 Type 2 diabetes mellitus with other specified complication; M86.472 Chronic osteomyelitis with draining sinus, left ankle and foot; Z79.4 Long term (current) use of insulin; Z89.412 Acquired absence of left great toe ==

== ENCOUNTER → 2021-11-04 | Outpatient (CLI) | payer BC, OTHER | LOC: HYPER 13:29 | PROVIDERS: ATTEND Emergency Medicine | DX: E11.621 Type 2 diabetes mellitus with foot ulcer (principal); L97.523 Non-pressure chronic ulcer of other part of left foot with necrosis of muscle; E11.622 Type 2 diabetes mellitus with other skin ulcer; L89.523 Pressure ulcer of left ankle, stage 3; L97.321 Non-pressure chronic ulcer of left ankle limited to breakdown of skin; L02.416 Cutaneous abscess of left lower limb; E11.69 Type 2 diabetes mellitus with other specified complication; M86.472 Chronic osteomyelitis with draining sinus, left ankle and foot; E11.40 Type 2 diabetes mellitus with diabetic neuropathy, unspecified; Z79.4 Long term (current) use of insulin; Z79.899 Other long term (current) drug therapy; Z89.412 Acquired absence of left great toe ==

== ENCOUNTER → 2021-11-10 | Outpatient (CLI) | payer BC, OTHER | LOC: HYPER 08:03 | PROVIDERS: ATTEND Emergency Medicine Emergency Medical Services | DX: E11.621 Type 2 diabetes mellitus with foot ulcer (principal); L97.423 Non-pressure chronic ulcer of left heel and midfoot with necrosis of muscle; E11.622 Type 2 diabetes mellitus with other skin ulcer; L89.523 Pressure ulcer of left ankle, stage 3; L97.322 Non-pressure chronic ulcer of left ankle with fat layer exposed; L02.416 Cutaneous abscess of left lower limb; L84 Corns and callosities; E11.69 Type 2 diabetes mellitus with other specified complication; M86.472 Chronic osteomyelitis with draining sinus, left ankle and foot; E11.40 Type 2 diabetes mellitus with diabetic neuropathy, unspecified; Z79.4 Long term (current) use of insulin; Z89.412 Acquired absence of left great toe ==

== ENCOUNTER → 2021-11-17 | Outpatient (CLI) | payer BC, OTHER | LOC: HYPER 08:12 | PROVIDERS: ATTEND Emergency Medicine Emergency Medical Services | DX: E11.621 Type 2 diabetes mellitus with foot ulcer (principal); L97.423 Non-pressure chronic ulcer of left heel and midfoot with necrosis of muscle; E11.622 Type 2 diabetes mellitus with other skin ulcer; L89.523 Pressure ulcer of left ankle, stage 3; L97.322 Non-pressure chronic ulcer of left ankle with fat layer exposed; L02.416 Cutaneous abscess of left lower limb; L84 Corns and callosities; E11.69 Type 2 diabetes mellitus with other specified complication; M86.472 Chronic osteomyelitis with draining sinus, left ankle and foot; E11.40 Type 2 diabetes mellitus with diabetic neuropathy, unspecified; Z79.4 Long term (current) use of insulin; Z89.412 Acquired absence of left great toe ==

== ENCOUNTER → 2021-11-24 | Outpatient (CLI) | payer BC, OTHER | LOC: HYPER 10:06 | PROVIDERS: ATTEND Emergency Medicine | DX: E11.621 Type 2 diabetes mellitus with foot ulcer (principal); L97.416 Non-pressure chronic ulcer of right heel and midfoot with bone involvement without evidence of necrosis; L97.523 Non-pressure chronic ulcer of other part of left foot with necrosis of muscle; E11.622 Type 2 diabetes mellitus with other skin ulcer; L89.523 Pressure ulcer of left ankle, stage 3; L97.322 Non-pressure chronic ulcer of left ankle with fat layer exposed; L02.416 Cutaneous abscess of left lower limb; E11.69 Type 2 diabetes mellitus with other specified complication; M86.472 Chronic osteomyelitis with draining sinus, left ankle and foot; L84 Corns and callosities; E11.40 Type 2 diabetes mellitus with diabetic neuropathy, unspecified; Z79.899 Other long term (current) drug therapy; Z79.4 Long term (current) use of insulin; Z89.412 Acquired absence of left great toe ==

== ENCOUNTER → 2021-12-01 | Outpatient (CLI) | payer OTHER | LOC: HYPER 08:05 | PROVIDERS: ATTEND Emergency Medicine | DX: E11.621 Type 2 diabetes mellitus with foot ulcer (principal); L97.523 Non-pressure chronic ulcer of other part of left foot with necrosis of muscle; E11.622 Type 2 diabetes mellitus with other skin ulcer; L89.523 Pressure ulcer of left ankle, stage 3; L97.322 Non-pressure chronic ulcer of left ankle with fat layer exposed; L02.416 Cutaneous abscess of left lower limb; E11.69 Type 2 diabetes mellitus with other specified complication; M86.472 Chronic osteomyelitis with draining sinus, left ankle and foot; L84 Corns and callosities; E11.40 Type 2 diabetes mellitus with diabetic neuropathy, unspecified; Z79.4 Long term (current) use of insulin; Z79.899 Other long term (current) drug therapy; Z89.412 Acquired absence of left great toe ==